=== PATIENT | female | born 1965 | race Caucasian/White ===

== ENCOUNTER 2017-04-25 17:11 | Emergency (ER) | payer BC ==
[~2017-04-25] VITALS: Ht 152.4 cm; Wt 70.0 kg
[2017-04-25] MEDS ORDERED: LEVO100T9 PO (17:28)
[2017-04-25] MEDS ORDERED: ASPIRIN 81MG TABLET PO STA (17:59)
[2017-04-25 18:36] LABS: BASOPHILS % 0.3 % (0.0-2.0); EOSINOPHILS % 0.8 % (0.0-5.0); HEMATOCRIT. 34.3 % (36.0-48.0); HEMOGLOBIN. 11.1 g/dL (12.0-16.0); LYMPHOCYTES % 30.4 % (20.0-50.0); MEAN CORPUSCULAR HEMOGLOBIN 26.8 pg (28.0-32.0); MEAN CORPUSCULAR VOLUME 82.7 fL (81.0-99.0); MEAN PLATELET VOLUME 8.4 fl (7.4-10.4); MONOCYTES % 8.8 % (2.0-8.0); NEUTROPHILS % 59.7 % (40.0-76.0); PLATELET 334 x1000/uL (130-400); RED BLOOD CELL COUNT 4.15 mill/uL (4.2-5.4); RED CELL DISTRIBUTION WIDTH 14.3 % (11.6-14.6)
[2017-04-25 18:40] LABS: CHLORIDE 107 mEq/L (98-107)
[2017-04-25 18:45] LABS: CARBON DIOXIDE 29 mEq/L (21-32)
[2017-04-25 18:46] LABS: D-DIMER < 0.19 mg/L FEU (<0.50); INR 1.1; PARTIAL THROMBOPLASTIN TIME 27.3 sec (23.4-31.0); PROTHROMBIN TIME 11.1 sec (9.4-11.6)
[2017-04-25 18:48] LABS: HCG SCREEN NEGATIVE
[2017-04-25 18:50] LABS: TROPONIN I < 0.02 ng/mL (0.00-0.04)
[2017-04-25 19:31] VITALS: BP 135/86
== END 2017-04-25 20:08 | disposition left against medical advice (07) ==
LOC: ER 17:47 → CANBEDREQ 21:16
DX: R07.9 Chest pain, unspecified (principal); E03.9 Hypothyroidism, unspecified; R42 Dizziness and giddiness; R00.2 Palpitations
CPT/HCPCS: 36415; 71010; 80048; 83880; 84443; 84484; 84703; 85025; 85379; 85610; 85730; 93005; 99285; Z7610